=== PATIENT | male | born 1975 | race Caucasian/White ===

== ENCOUNTER 2017-05-18 12:03 | Day surgery (SDC) | payer MEDICAID ==
[2017-05-18] MEDS ORDERED: LR 1,000 ML IV ONE (12:21)
[2017-05-18] MEDS ORDERED: LIDOCAINE 1% 2 ML INJ ID PRN (12:21)
[2017-05-18] MEDS ORDERED: MIDAZOLAM 2 MG/2 ML VIAL ONE (14:02)
[2017-05-18] MEDS ORDERED: PROPOFOL/EMULSION 500 MG/50 ML BOTTLE IV ONE (14:02)
[2017-05-18] MEDS ORDERED: INDOMETHACIN 50 MG SUPP PR PRN (14:10)
--- NOTE | 2017-05-18 14:10 | PDGENHP ---
History & Physical Chief Complaint: barretts History of Present Illness: 42 year old male presents for surveillance of Barretts esophagus Pertinent Past, Social, Family History: PMHx: Hep c Relevant Physical Exam: HEENT: anicteric. CV: RRR +s1s2. lungs: CTAB. Abd: soft, nt, + bs Cardiorespiratory Assessment: ASA 2
[2017-05-18] MEDS ORDERED: NS 500 ML IV SCH (14:15)
--- NOTE | 2017-05-18 14:20 | PDANEPAE ---
ANE Past Medical History - Cardiovascular History Hx Hypertension: No Hx Arrhythmias: No Hx Chest Pain: No Hx Coronary Artery / Peripheral Vascular Disease: No Hx CHF / Valvular Disease: No Hx Palpitations: No - Pulmonary History Hx COPD: No Hx Asthma/Reactive Airway Disease: No Hx Recent Upper Respiratory Infection: No Hx Oxygen in Use at Home: No Hx Sleep Apnea: No Sleep Apnea Screening Result - Last Documented: Positive Pulmonary History Comment: occ SOB w/active job - Neurologic History Hx Cerebrovascular Accident: No Hx Seizures: No Hx Dementia: No - Endocrine History Hx Diabetes: No - Renal History Hx Renal Disorders: No - Liver History Hx Hepatic Disorders: Yes Hepatic History Comment: took Vikera to eradicate Hep C - Neurological & Psychiatric Hx Hx Neurological and Psychiatric Disorders: No - Cancer History Hx Cancer: No - Congenital Disorder History Hx Congenital Disorders: No - GI History Hx Gastrointestinal Disorders: Yes Gastrointestinal History Comment: EGD in past-"possible problem w/pancreas" - Other Health History Other Health History: none - Chronic Pain History Chronic Pain: No - Surgical History Prior Surgeries: knee scope 90's. R carpal tunnel. lipoma on back excised ANE Review of Systems Review of Systems: - Exercise capacity METS (RN): 4 METS ANE Patient History - Allergies Allergies/Adverse Reactions: No Known Allergies Allergy (Unverified 05/06/17 17:13) - Home Medications Home Medications: Methadone HCl 05/06/17 [Last Taken 05/18/17 06:45] - NPO status NPO Since - Liquids (Date): 05/18/17 NPO Since - Liquids (Time): 07:30 NPO Since - Solids (Date): 05/18/17 NPO Since - Solids (Time): 07:30 - Smoking Hx Smoking Status: Heavy smoker ANE Labs/Vital Signs - Vital Signs Blood Pressure: 134/88 Heart Rate: 83 Respiratory Rate: 16 O2 Sat (%): 93 Height: 175.26 cm Weight: 86.183 kg ANE Physical Exam - Airway Neck exam: FROM Mallampati Score: Class 1 Mouth exam: poor dentition, ruffin - Pulmonary Pulmonary: no respiratory distress, no rales or rhonchi, reduced air movement - Cardiovascular Cardiovascular: regular rate and rhythym, no murmur, rub, or gallop - ASA Status ASA Status: III ANE Anesthesia Plan Anesthesia Plan: GA with mask
--- NOTE | 2017-05-18 14:23 | GIREPORT ---
[facility] Surgical Services - Endoscopy Department Patient Name: Unruly Luong Procedure Date: 05/18/2017 12:43 PM Patient Type: Outpatient Attending MD/ ER Physician: Sanjeev Dan MD Procedure: Upper GI endoscopy Indications: Follow-up of Stauffer's esophagus Patient Profile: 42 year old male presents for forrlow up of Barretts esophagus/heartbur n. Providers: Sanjeev Dan MD Medicines: Monitored Anesthesia Care Complications: No immediate complications. Estimated blood loss: Minimal. Description of Procedure: After obtaining informed consent, the endoscope was passed under direct vision. Throughout the procedure, the patient's blood pressure, pulse, and oxygen saturations were monitored continuously. The Endoscope was intro duced through the mouth, and advanced to the second part of duodenum. The [facility] GI endoscopy was accomplished without difficulty. The patient tolerated th e procedure well. Findings: The Z-line was irregular and was found at the gastroesophageal junction . Biopsies were taken with a cold forceps for histology. A small hiatal hernia was present. Patchy mildly erythematous mucosa was found in the gastric body and in the gastric antrum. Biopsies were taken with a cold forceps for histology. The examined duodenum was normal. Estimated Blood Loss: Estimated blood loss was minimal. Post Op Diagnosis: - Z-line irregular, at the gastroesophageal junction. Biopsied. - Small hiatal hernia. - Erythematous mucosa in the gastric body and antrum. Biopsied. - Normal examined duodenum. - Etiology? Irregular Z-line. No obvious Stauffer's esophagus. Will awai t biopsy results. Recommendation: - Discharge patient to home (with escort). - Resume previous diet. - Continue present medications. - Follow an antireflux regimen. - Await pathology results. - Repeat upper endoscopy for surveillance based on pathology results. - Thank you for allowing me to participate in the care of your patient. Attending Participation: I personally performed the entire procedure. Sanjeev Dan MD Sanjeev Dan MD 05/18/2017 2:22:50 PM This report has been signed electronicallySanjeev Dan MD Number of Addenda: 0 Note Initiated On: 05/18/2017 12:43 PM [email or web address]
[2017-05-18] MEDS ORDERED: NALOXONE HCL 0.4 MG/ML INJ IVP PRN (14:26)
[2017-05-18] MEDS ORDERED: PROMETHAZINE HCL 25 MG/ML INJ IVP PRN (14:26)
[2017-05-18] MEDS ORDERED: fentaNYL 100 MCG/2 ML INJ IVP PRN (14:26)
[2017-05-18] MEDS ORDERED: DEXAMETHASONE 4 MG/ML VIAL IVP PRN (14:26)
[2017-05-18] MEDS ORDERED: LR 500 ML IV PRN (14:26)
[2017-05-18] MEDS ORDERED: ALBUTEROL 3 ML DEYVIAL IH PRN (14:26)
--- NOTE | 2017-05-18 14:27 | POSTANESTH ---
Post Anesthetic Evaluation Cardiovascular Status: Normal, Stable, Similar to Pre-Op Cond Respiratory Status: Normal, Stable, Similar to Pre-op Cond. Level of Consciousness/Mental Status: Can Participate in Eval Pain Control: Adequate, Prn Tx Ordered Nausea/Vomiting Control: Adequate, Prn Tx Ordered Complications Possibly Related to Anesthesia: None Noted
[2017-05-18 15:14] VITALS: TEMP 98.4
[2017-05-18 15:17] VITALS: BP 101/70; PULSE 66; RESP 17; O2SAT 92
== END 2017-05-18 15:42 | disposition home or self-care (01) ==
LOC: FSGY 12:03
PROVIDERS: ATTEND Internal Medicine Gastroenterology
PROC: 0DB48ZX Excision of Esophagogastric Junction, Via Natural or Artificial Opening Endoscopic, Diagnostic (ICD-10-PCS; principal; 2017-05-18 12:30)
PROC: 0DB68ZX Excision of Stomach, Via Natural or Artificial Opening Endoscopic, Diagnostic (ICD-10-PCS; principal; 2017-05-18 12:30)
DX: K20.9 Esophagitis, unspecified (principal); K44.9 Diaphragmatic hernia without obstruction or gangrene; B19.20 Unspecified viral hepatitis C without hepatic coma; R12 Heartburn
CPT/HCPCS: J2250; J2704

== ENCOUNTER 2018-02-05 11:08 | Emergency (ER) | payer MEDICAID ==
--- NOTE | 2018-02-05 11:30 | EDPHY ---
General Time Seen by Provider: 02/05/18 11:22 Narrative: CHIEF COMPLAINT: Fall from ladder, elbow pain HISTORY OF PRESENT ILLNESS: Patient presents by private vehicle with reports of fall from ladder with left elbow pain and right low back pain. He states that he was approximately 5-6 feet high when the ladder slipped out from under him. He landed on his right back and left elbow on concrete. No head strike or loss of conscious. Complains of severe pain in the left elbow and mild pain in the right lower back. He has no midline back tenderness. No numbness, tingling, weakness. No nausea vomiting. No headache or neck pain. Pain left elbow severe to the point he cannot move it. Does not radiate. Also has left elbow laceration that is stop bleeding without difficulty. No other associated complaints or modifying factors. REVIEW OF SYSTEMS: 10 systems were reviewed and negative with the exception of the elements mentioned in the history of present illness. PCP: Dr. Matute SPECIALISTS: None PAST MEDICAL HISTORY: Previous heroin dependency now on methadone, carpal carpal tunnel syndrome, hep C status post treatment PAST SURGICAL HISTORY: Lipoma removal, arthroscopic knee surgery, carpal tunnel release SOCIAL HISTORY: Daily smoker. Previous heroin use, sober for 10 years now on methadone. FAMILY HISTORY: Noncontributory EXAMINATION General Appearance: Alert, no distress Head: normocephalic, atraumatic. No Schofield sign. No raccoon eyes. No depression or deformity Eyes: Pupils equal and round, no conjunctival pallor or injection ENT, Mouth: Mucous membranes moist. Airway is widely patent Neck: Normal inspection, supple, non-tender Respiratory: Lungs are clear to auscultation Cardiovascular: Regular rate and rhythm no murmur. Symmetric radial pulses 2+. Gastrointestinal: Abdomen is soft and nontender Back: No midline tenderness. There is tenderness of the right lower back over area of abrasion. No step-off, crepitus or deformity. Neurological: A&O, nonfocal, normal gait. Interossei strength symmetric. Skin: Warm and dry. Abrasion of the right lower back. Multiple tattoos. There is a 3 cm laceration with tissue avulsion of the left posterior elbow. No active bleeding. No foreign body. Extremities: Significant swelling and tenderness of the left elbow without ability to straighten the elbow. Range of motion of the shoulder symmetric. Range of motion of the fingers symmetric Psychiatric: Mood and affect normal DIFFERENTIAL DIAGNOSES: Including but not limited to elbow fracture, elbow dislocation, sprain, strain, complex laceration, back contusion, back strain, abrasions MDM: 11:25 a.m. Fall from approximately 5-6 feet height with a left elbow injury and laceration , right back contusion and abrasion. There is no head or neck injury. No nausea or vomiting. No evidence of injury other than the left elbow and right lower back abrasion. He is neurovascular intact distally. He is awake and alert, no acute distress. 11:50 a.m. X-ray as read by me, in conjunction Dr. Quiroz reveals suspected radial head fracture. I do not appreciate any obvious olecranon fracture. No dislocation. The wound has been anesthetized. We will irrigate and closed the wound. 12:10 p.m. Case discussed with methadone clinic nurse, Joycelyn. He informed me that it is allowable for the patient to receive short course of pain medication, but he must take that medication to the office tomorrow to show them. 12:40 p.m. Laceration has been repaired without difficulty. He will be placed in a sling for the occult radial head fracture. This is not an open fracture. However, he does have a deep elbow laceration that I will treat prophylactically with Keflex. We discussed orthopedic follow-up for the elbow. We discuss ice, anti- inflammatories and Flexeril for the low back pain. We discussed short course of Percocet that needs to be monitored by the methadone clinic. We discussed daily wound care in the need to return here in 7-10 days for suture removal. We discussed ED precautions and he is discharged home stable condition. PROCEDURE: Laceration repair Consent: Verbal Location: Left posterior elbow Length of repair: 3 cm Complexity: Complex, curvilinear in jagged edges with some tissue avulsion Layer involvement: Single Anesthesia: Local. 0.5% Marcaine with epinephrine, 7 mL Irrigation: Extensive Debridement: 1 cm excisional debridement Procedure description: Following good anesthesia, the wound was copiously irrigated. Wound bed was explored with a sterile glove, and there is no foreign body noted. 1 cm excisional debridement performed. No exposure of the joint Wound borders were approximated well with good hemostasis. Tolerated well without complication. I personally performed this procedure Suture/Staple material: cutaneous layer: 4-0 Prolene, 6 simple ruptured sutures Wound care: Routine as discussed Suture/Staple removal: 10 Days SUPERVISION: Patient was independently examined, but I discussed the case with my secondary supervising physician Dr. Quiroz - Diagnostics Imaging Results: Imaging Impressions Elbow X-Ray 02/05/18 11:30 Impression: 1. Elbow effusion. Query occult radial head fracture. 2. Soft tissue laceration over olecranon. No intra-articular gas. - History Smoking Status: Heavy smoker - Objective Vital Signs: Initial Vital Signs Temperature (C) 98.4 F 02/05/18 11:10 Heart Rate 88 02/05/18 11:10 Respiratory Rate 18 02/05/18 11:10 Blood Pressure 153/83 H 02/05/18 11:10 O2 Sat (%) 94 02/05/18 11:10 O2 Delivery Mode Room Air Allergies/Adverse Reactions: No Known Allergies Allergy (Verified 02/05/18 11:15) Home Medications: Medication Instructions Recorded Methadone HCl 05/06/17 Cephalexin [Keflex (*)] 500 mg PO QID #28 cap 02/05/18 Cyclobenzaprine [Flexeril 10 MG 10 mg PO TID PRN #9 tab 02/05/18 (*)] oxyCODONE HCL/ACETAMINOPHEN 1 each PO Q4-6PRN PRN #7 tablet 02/05/18 [Percocet 5-325 mg Tablet] Medications Given: Discontinued Medications Cyclobenzaprine HCl (Flexeril) 10 mg PO EDNOW ONE Stop: 02/05/18 12:18 Last Admin: 02/05/18 12:36 Dose: 10 mg Ibuprofen (Motrin) 600 mg PO EDNOW ONE Stop: 02/05/18 11:37 Last Admin: 02/05/18 11:50 Dose: 600 mg Departure - Departure Disposition: Home, Routine, Self-Care Clinical Impression: Fracture of radial head, left, closed Qualifiers: Encounter type: initial encounter Fracture alignment: nondisplaced Qualified Code(s): S52.125A - Nondisplaced fracture of head of left radius, initial encounter for closed fracture Laceration of elbow Qualifiers: Encounter type: initial encounter Laterality: left Qualified Code(s): S51.012A - Laceration without foreign body of left elbow, initial encounter Back contusion Qualifiers: Encounter type: initial encounter Laterality: left Qualified Code(s): S20.222A - Contusion of left back wall of thorax, initial encounter Fall from ladder Qualifiers: Encounter type: initial encounter Qualified Code(s): W11.XXXA - Fall on and from ladder, initial encounter Condition: Good Instructions: Care For Your Stitches (DC), Laceration (ED), Elbow Fracture (ED) Additional Instructions: 1. Daily wound care for the laceration as discussed 2. Sling for the left elbow fracture as needed 3. Ibuprofen [id number] as discussed as needed. 600 mg every 6-8 hours 4. Mandatory orthopedic follow-up for definitive care 5. ED precautions as discussed 6. Prescription medications as discussed Referrals: Garrison Grant MD [Medical Doctor] - As per Instructions Prescriptions: Cephalexin [Keflex (*)] 500 mg PO QID #28 cap Cyclobenzaprine [Flexeril 10 MG (*)] 10 mg PO TID PRN #9 tab PRN Reason: Spasms oxyCODONE HCL/ACETAMINOPHEN [Percocet 5-325 mg Tablet] 1 each PO Q4-6PRN PRN #7 tablet PRN Reason: Pain, Breakthrough
[2018-02-05] MEDS ORDERED: IBUPROFEN 600 MG TAB PO ONE (11:36)
[2018-02-05] MEDS ORDERED: CYCLOBENZAPRINE 10 MG TAB PO ONE (12:17)
[2018-02-05 13:17] VITALS: BP 123/91
== END 2018-02-05 13:14 | disposition home or self-care (01) ==
PROC: 0HQEXZZ Repair Left Lower Arm Skin, External Approach (ICD-10-PCS; principal; 2018-02-05)
DX: S52.125A Nondisplaced fracture of head of left radius, initial encounter for closed fracture (principal); S51.012A Laceration without foreign body of left elbow, initial encounter; W11.XXXA Fall on and from ladder, initial encounter
CPT/HCPCS: A4565

== ENCOUNTER → 2018-06-09 | Outpatient (CLI) | payer MEDICAID | LOC: GIMAGING 11:40 → EDSTATUS 15:36 | PROVIDERS: ATTEND Family Medicine | DX: M41.9 Scoliosis, unspecified (principal); M51.36 Other intervertebral disc degeneration, lumbar region | CPT/HCPCS: 72100-PO ==